=== PATIENT | male | born 1990 | race African-American/Black ===

== ENCOUNTER 2024-01-04 03:55 | Emergency (ER) | payer OTHER ==
[~2024-01-04] VITALS: Ht 182.9 cm; Wt 68.0 kg
[2024-01-04 04:46] VITALS: BP 96/73; PULSE 61; RESP 18; TEMP 97.2; O2SAT 100
[2024-01-04] MEDS ORDERED: NAPR-337 PO (05:34)
== END 2024-01-04 05:35 | disposition home or self-care (01) ==
LOC: MED 03:55
DX: S93.602A Unspecified sprain of left foot, initial encounter (principal); Z79.1 Long term (current) use of non-steroidal anti-inflammatories (NSAID); X58.XXXA Exposure to other specified factors, initial encounter; Y93.89 Activity, other specified; Y92.89 Other specified places as the place of occurrence of the external cause; Y99.8 Other external cause status
CPT/HCPCS: 73630; 99283